=== PATIENT | female | born 1940 | race Caucasian/White ===

== ENCOUNTER 2016-10-23 12:04 | Observation (INO) | payer OTHER ==
--- NOTE | 2016-10-23 12:13 | PDOC ---
History of Present Illness <Sj Frost - Last Filed: 10/23/16 14:23> - General History Source: Patient Exam Limitations: No Limitations - History of Present Illness Initial Comments: 10/23/16 12:35 The patient is a 76 year old female, with a significant past medical history of gastritis, who presents to the emergency department with generalized weakness, decreased appetite, nausea and vomiting. Patient notes that she has been feeling very dehydrated over the past couple of days, She notes that she spent 3 days in the hospital with her waiting for him to be admitted and has been feeling very dehydrated and stressed. She notes that she had a good bowel movement yesterday denies diarrhea or constipation. She denies chest pain, shortness of breath, headache and dizziness. She denies fever, chills, diarrhea and constipation. She denies dysuria, frequency, urgency and hematuria. PCP: Dr. Matt Lynn <Yuli Elliott - Last Filed: 10/23/16 14:25> - General Chief Complaint: Weakness Stated Complaint: NAUSIA/FEVERISH Past History - Past Medical History Anemia: No Asthma: No Cancer: No Cardiac Disorders: No CVA: No COPD: No CHF: No Dementia: No Diabetes: No GI Disorders: Yes (acid reflux) Disorders: No HTN: No Hypercholesterolemia: No Liver Disease: No Seizures: No Thyroid Disease: No - Surgical History Appendectomy: Yes - Psycho/Social/Smoking Cessation Hx Smoking History: Never smoked Have you smoked in the past 12 months: No <Sj Frost - Last Filed: 10/23/16 14:23> <Yuli Elliott - Last Filed: 10/23/16 14:25> - Past Medical History Allergies/Adverse Reactions: Allergies Allergy/AdvReac Type Severity Reaction Status Date / Time No Known Allergies Allergy Verified 10/23/16 12:42 Home Medications: Ambulatory Orders Esomeprazole Magnesium [Nexium] 5 mg PO DAILY 10/23/16 Review of Systems - Review of Systems Able to Perform ROS?: Yes Comments:: 10/23/16 12:36 CONSTITUTIONAL: Present: generalized weakness, loss of appetite Absent: fever, chills, diaphoresis, malaise HEENT: Absent: rhinorrhea, nasal congestion, throat pain, throat swelling, difficulty swallowing, mouth swelling, ear pain, eye pain, visual Changes CARDIOVASCULAR: Absent: chest pain, syncope, palpitations, irregular heart rate, lightheadedness , peripheral edema RESPIRATORY: Absent: cough, shortness of breath, dyspnea with exertion, orthopnea, wheezing, stridor, hemoptysis GASTROINTESTINAL: Present: nausea, vomiting Absent: abdominal pain, abdominal distension, diarrhea, constipation, melena, hematochezia GENITOURINARY: Absent: dysuria, frequency, urgency, hesitancy, hematuria, flank pain, genital pain MUSCULOSKELETAL: Absent: myalgia, arthralgia, joint swelling SKIN: Absent: rash, itching, pallor HEMATOLOGIC/IMMUNOLOGIC: Absent: easy bleeding, easy bruising, lymphadenopathy, frequent infections ENDOCRINE: Absent: unexplained weight gain, unexplained weight loss, heat intolerance, cold intolerance NEUROLOGIC: Absent: headache, focal weakness or paresthesias, dizziness, unsteady gait, seizure, mental status changes, bladder or bowel incontinence PSYCHIATRIC: Absent: anxiety, depression, suicidal or homicidal ideation, hallucinations. <Yuli Elliott - Last Filed: 10/23/16 14:25> *Physical Exam - Physical Exam Comments: 10/23/16 12:37 GENERAL: Well developed, well nourished. Awake and alert. In no acute distress. HEENT: +Dry mucous membranes. Normocephalic, atraumatic. PERRLA, EOMI. No conjunctival pallor. Sclera are non-icteric. Oropharynx is clear. NECK: Supple. Full ROM. No JVD. Carotid pulses 2+ and symmetric, without bruits. No thyromegaly. No lymphadenopathy. CARDIOVASCULAR: Regular rate and rhythm. No murmurs, rubs, or gallops. Distal pulses are 2+ and symmetric. PULMONARY: No evidence of respiratory distress. Lungs clear to auscultation bilaterally. No wheezing, rales or rhonchi. ABDOMINAL: Soft. Non-tender. Non-distended. No rebound or guarding. No organomegaly. Normoactive bowel sounds. MUSCULOSKELETAL Normal range of motion at all joints. No bony deformities or tenderness. No CVA tenderness. EXTREMITIES: No cyanosis. No clubbing. No edema. No calf tenderness. SKIN: Warm and dry. Normal capillary refill. No rashes. No jaundice. NEUROLOGICAL: Alert, awake, appropriate. Cranial nerves 2-12 intact. No deficits to light touch and temperature in face, upper extremities and lower extremities. No motor deficits in the in face, upper extremities and lower extremities. Normoreflexic in the upper and lower extremities. Normal speech. Toes are downgoing bilaterally. PSYCHIATRIC: Cooperative. Good eye contact. Appropriate mood and affect. <Yuli Elliott - Last Filed: 10/23/16 14:25> Heart Score/ECG Review #1 10/23/16 12:[address] Frost. Impresion: Sinus bradycardia ST & T wave abnormality, consider anterolateral ischemia Vent rate: 56 bpm QRS 88 ms <Yuli Elliott - Last Filed: 10/23/16 14:25> ED Treatment Course - LABORATORY CBC & Chemistry Diagram: 10/23/16 12:30 10/23/16 12:04 <Sj Frost - Last Filed: 10/23/16 14:23> - LABORATORY CBC & Chemistry Diagram: 10/23/16 12:30 10/23/16 12:04 <Yuli Elliott - Last Filed: 10/23/16 14:25> Medical Decision Making - Medical Decision Making 10/23/16 14:19 ekg shows anterolateral ischemia (a change from the prior ekg). Seen by cardiology, to be admitted. Dr. Prado to admit. <Sj Frost - Last Filed: 10/23/16 14:23> - Medical Decision Making 10/23/16 12:32 A call was placed to Dr. Matt Lynn at his service. Awaiting a call back. 10/23/16 13:[address] Lynn. 10/23/16 13:05 A call was placed to Dr. Helton. Awaiting a call back. 10/23/16 13:[address] Helton. <Yuli Elliott - Last Filed: 10/23/16 14:25> *DC/Admit/Observation/Transfer - Discharge Dispostion Admit: Yes <Sj Frost - Last Filed: 10/23/16 14:23> - Attestations Scribe Attestion: 10/23/16 12:40 Documentation prepared by Yuli Koziy, SCRIBE, acting as medical records director for Sj Frost MD. <Yuli Elliott - Last Filed: 10/23/16 14:25> Diagnosis at time of Disposition: Anginal equivalent, UTI (urinary tract infection) - Discharge Dispostion Condition at time of disposition: Guarded - Referrals Referrals: Matt Lynn MD [Primary Care Provider] -
[2016-10-23] MEDS ORDERED: SODIUM CHLORIDE 1,000 ML IV STA (12:27)
[2016-10-23] MEDS ORDERED: ONDANSETRON 4 MG/2 ML VIAL IVPUSH ONE (12:28)
[2016-10-23] MEDS ORDERED: ONDANSETRON 4 MG/2 ML VIAL ONE (12:52)
[2016-10-23 12:56] LABS: BASOPHIL 0.1 % (0-2.0); EOSINOPHIL 0.1 % (0-4.5); MCH 29.3 pg (25.7-33.7); MCHC 34.3 g/dl (32.0-36.0); MEAN CELL VOLUME 85.5 fl (80-96); MEAN PLT VOLUME 9.2 fl (7.5-11.1); NEUTROPHILS 70.6 % (42.8-82.8); PLATELET COUNT 194 K/MM3 (134-434); RDW 13.3 % (11.6-15.6); WHITE BLOOD COUNT 10.5 K/mm3 (4.0-10.0)
[2016-10-23 13:10] LABS: URINE APPEARANCE CLEAR; URINE BILIRUBIN NEGATIVE (NEGATIVE); URINE BLOOD NEGATIVE (NEGATIVE); URINE COLOR STRAW; URINE GLUCOSE (UA) NEGATIVE (NEGATIVE); URINE KETONE NEGATIVE (NEGATIVE); URINE NITRITE NEGATIVE (NEGATIVE); URINE PROTEIN NEGATIVE (NEGATIVE); URINE UROBILINOGEN NEGATIVE E.U./dl (0.2-1.0)
[2016-10-23 13:12] LABS: URINE LEUK ESTERASE 3+ (NEGATIVE)
[2016-10-23 13:13] LABS: URINE BACTERIA FEW /hpf (NONE SEEN); URINE WBC 19 /hpf (3-5)
[2016-10-23 13:29] LABS: ALBUMIN 4.1 g/dl (3.4-5.0); ANION GAP 13 (8-16); BILIRUBIN,TOTAL 0.8 mg/dL (0.2-1.0); CO2 22 mmol/L (21-32); CREATININE 0.9 mg/dL (0.55-1.02); GLUCOSE,RANDOM 95 mg/dL (74-106); SGOT/AST 27 U/L (15-37); SGPT/ALT 24 U/L (12-78); TOT PROT 7.7 g/dl (6.4-8.2)
[2016-10-23 13:32] LABS: ALK PHOS 80 U/L (45-117); TROPONIN I < 0.02 ng/ml (0.00-0.05)
[2016-10-23] MEDS ORDERED: CIPROFLOXACIN 250 MG TABLET (RESTRICTED TO ID) PO ONE (13:48)
--- NOTE | 2016-10-23 14:07 | CON.CARD ---
Consult Consult Specialty:: Cardiology Referred by:: ER Reason for Consultation:: Abnormal EKG - History of Present Illness Chief Complaint: Lightheadedness, fatigue History of Present Illness: 76 year old woman with only h/o GERD, recently evaluated by pmd and framing manager in office for exertional fatigue and mild JAFFE presented to ER today with c/o lightheadedness and fatigue that started this am. Pt. noted to have a markedly abnormal ekg with concern for anterolateral ischemia. Pt. seen and examined in the ER in nad. she states that she is feeling much better since coming here. she denies any further lightheadedness. she denies having had any chest pain. she does have mild jaffe for sometime but no sob at rest. no pnd, orthopnea, or LE edema. no palpitations. no syncope or near syncope. Of note she had an exercise treadmill stress test in the office 08/2016 that showed no ischemia and an echo that showed a normal structural heart with carotid doppler that showed no stenosis. Also, her is very sick at home which is contributing to her chronic fatigue. - History Source History Provided By: Patient, Medical Record Limitations to Obtaining History: No Limitations - Past Medical History Gastrointestinal: Yes: GERD - Alcohol/Substance Use Hx Alcohol Use: No - Smoking History Smoking history: Never smoked Have you smoked in the past 12 months: No - Social History Usual Living Arrangement: With Spouse ADL: Independent History of Recent Travel: No Home Medications - Allergies Allergies/Adverse Reactions: Allergies Allergy/AdvReac Type Severity Reaction Status Date / Time No Known Allergies Allergy Verified 10/23/16 12:42 - Home Medications Home Medications: Ambulatory Orders Esomeprazole Magnesium [Nexium] 5 mg PO DAILY 10/23/16 Family Disease History - Family Disease History Family History: Denies Review of Systems - Review of Systems Constitutional: reports: Lethargy, Malaise, Weakness. denies: No Symptoms, Chills, Diaphoresis, Fever, Loss of Appetite, Night Sweats, Unintentional Wgt. Loss, Other Eyes: denies: No Symptoms, Blind Spots, Blurred Vision, Double Vision, Eye Pain , Floaters, Photophobia, Recent Change in Vision, Other HENT: denies: No Symptoms, Difficult Swallowing, Ear Discharge, Ear Pain, Epistaxis, Gingival Bleeding, Hearing Loss, Mouth Swelling, Nasal Congestion, Ocular Prosthesis, Throat Pain, Toothache, Ringing in Ears, Other Neck: denies: No Symptoms, Decreased ROM, Lumps, Pain on Movement, Stiffness, Swollen Glands, Tenderness, Other Cardiovascular: denies: No Symptoms, Chest Pain, Edema, Palpitations, Shortness of Breath, Other Respiratory: denies: No Symptoms, Cough, Exercise Intolerance, Hemoptysis, Orthopnea, PND, Snoring, SOB, SOB on Exertion, Wheezing, Other Gastrointestinal: denies: No Symptoms, Abdominal Pain, Bloating, Constipation, Diarrhea, Dysphagia, Indigestion, Melena, Nausea, Rectal Bleeding, Vomiting, Vomiting Blood, Other Genitourinary: denies: No Symptoms, Burning, Discharge, Dysuria, Flank Pain, Frequency, Hematuria, Incontinence, Lesions, Menses, Pain, Testicular Mass, Testicular Pain, Testicular Swelling, Urgency, Vaginal Bleeding, Other Breasts: denies: No Symptoms Reported, See HPI, Breast Implants, Discharge from Nipple, Lumps, Pain, Skin Changes, Other Musculoskeletal: denies: No Symptoms, Back Pain, Crepitus, Decreased ROM, Extremity Pain, Joint Pain, Joint Swelling, Muscle Pain, Muscle Cramps, Muscle Weakness, Other Integumentary: denies: No Symptoms, Blister, Bruising, Change in Color, Eczema, Erythema, Incision, Lesions, Lump, Pallor, Pruritis, Rash, Wound, Other Neurological: reports: Dizziness. denies: No Symptoms, Change in LOC, Change in Speech, Confusion, Headache, Incoordination, Numbness, Parasthesia, Pre- Existing Deficit, Seizure, Syncope, Tremors, Unsteady Gait, Weakness, Other Endocrine: denies: No Symptoms, Excessive Sweating, Flushing, Increased Hunger, Increased Thirst, Intolerance to Cold, Intolerance to Heat, Unexplained Weight Gain, Unexplained Weight Loss, Other Hematology/Lymphatic: denies: No Symptoms, Easily Bruised, Excessive Bleeding, Swollen Glands, Other Psychiatric: denies: No Symptoms, Altered Sleep Pattern, Anxiety, Depression, Hallucinations, Panic, Paranoia, Suicidal, Other - Risk Factors Known Risk Factors: Yes: Age Vital Signs: Vital Signs Temperature 98.6 F 10/23/16 12:26 Pulse Rate 61 10/23/16 12:26 Respiratory Rate 16 10/23/16 12:26 Blood Pressure 156/84 10/23/16 12:26 O2 Sat by Pulse Oximetry (%) 100 10/23/16 12:26 Constitutional: Yes: Well Nourished, No Distress, Calm Eyes: Yes: WNL, Conjunctiva Clear, EOM Intact HENT: Yes: WNL, Atraumatic, Normocephalic Neck: Yes: WNL, Supple, Trachea Midline Respiratory: Yes: WNL, Regular, CTA Bilaterally. No: Rales, Rhonchi, Wheezes Gastrointestinal: Yes: WNL, Normal Bowel Sounds, Soft. No: Distention, Tenderness Renal/: Yes: WNL Cardiovascular: Yes: WNL, Regular Rate and Rhythm. No: Bradycardia, Tachycardia , Pulse Irregular, Gallop, Rub, Varicosities JVD: No Carotid Bruit: No PMI: Non-Displaced Heart Sounds: Yes: S1, S2. No: Split S2, S3, S4, Clicks, Gallop, Rub, Bruit Murmur: No: Systolic Murmur, Diastolic Murmur Musculoskeletal: Yes: WNL Extremities: Yes: WNL Edema: No Peripheral Pulses WNL: Yes Peripheral Pulses: 2+ Left Doralis Pedis, 2+ Right Dorsalis Pedis Integumentary: Yes: WNL Neurological: Yes: WNL, Alert, Oriented, Cran Nerves II-XII Intact ...Motor Strength: WNL Psychiatric: Yes: WNL, Alert, Oriented - Other Data Labs, Other Data: CBC, BMP 10/23/16 12:30 10/23/16 12:04 Troponin, BNP 10/23/16 12:04 Troponin I < 0.02 Troponin, BNP 10/23/16 12:04 Troponin I < 0.02 ekg-sinus bradycardia 56bpm, T wave inversions V2-V6, possible anterolateral ischemia Echo: Report Reviewed Imaging - Results Chest X-ray: Report Reviewed, Image Reviewed EKG: Report Reviewed, Image Reviewed Other: Report Reviewed, Image Reviewed Assessment/Plan 76 year old woman with only h/o GERD, recently evaluated by pmd and framing manager in office for exertional fatigue and mild JAFFE presented to ER today with c/o lightheadedness and fatigue that started this am. Pt. noted to have a markedly abnormal ekg with concern for anterolateral ischemia. Pt. seen and examined in the ER in nad. she states that she is feeling much better since coming here. she denies any further lightheadedness. she denies having had any chest pain. she does have mild jaffe for sometime but no sob at rest. no pnd, orthopnea, or LE edema. no palpitations. no syncope or near syncope. Of note she had an exercise treadmill stress test in the office 08/2016 that showed no ischemia and an echo that showed a normal structural heart with carotid doppler that showed no stenosis. Also, her is very sick at home which is contributing to her chronic fatigue. Abnormal EKG -c/w possible anterolateral ischemia -no chest pain -cardiac enzymes wnl x 1 -admit to tele -serial ekgs and cardiac enzymes -can give ASA 325mg x 1 then 81mg daily -can hold off on full AC for now unless cardiac enzymes elevated -no bblocker given sinus bradycardia -check fasting lipids -plan for now for echo and nuclear stress test tuesday Lightheadedness-unclear etiology, likely related to fatigue from taking care of her sick -monitor on tele for arrhythmia -ischemic work up as above -recent carotid doppler showed no stenosis -symptoms have resolved
[2016-10-23] MEDS ORDERED: ONDANSETRON 4 MG/2 ML VIAL IVPB PRN (14:46)
[2016-10-23] MEDS ORDERED: ACETAMINOPHEN 325 MG TABLET (FP) PO PRN (14:46)
--- NOTE | 2016-10-23 14:46 | HP ---
[id number] woman who comes to the ER today complaining of fatigue and lightheadedness. She denies fever, chills, cough, chest pain, palpitations, abdominal pain, nausea, vomiting, diarrhea, melena, rectal bleeding, dysuria, hematuria. He has occasional shortness of breath with exertion. She has been under a lot of stress because her has been sick. She says she had a normal stress test and a normal echo a few months ago. PAST MEDICAL HISTORY GERD PAST SURGICAL HISTORY Appendectomy Allergies No Known Allergies Allergy (Verified 10/23/16 12:42) HOME MEDICATIONS 3 Medication Instructions Recorded Esomeprazole Magnesium [Nexium] 5 mg PO DAILY 10/23/16 Social History: Smoking: Never smoked Alcohol: Denies Drugs: Denies Recent Travel: No Family History: Non-contributory REVIEW OF SYSTEMS CONSTITUTIONAL: Present: generalized weakness, malaise. Absent: fever, chills, diaphoresis, loss of appetite, weight change HEENT: Absent: rhinorrhea, nasal congestion, throat pain, throat swelling, difficulty swallowing, mouth swelling, ear pain, eye pain, visual changes CARDIOVASCULAR: Present: lightheadedness. Absent: chest pain, syncope, palpitations, peripheral edema RESPIRATORY: Present: dyspnea on exertion. Absent: cough, orthopnea, wheezing, stridor, hemoptysis GASTROINTESTINAL: Absent: abdominal pain, abdominal distension, nausea, vomiting , diarrhea, constipation, melena, hematochezia GENITOURINARY: Absent: dysuria, frequency, urgency, hesitancy, hematuria, flank pain MUSCULOSKELETAL: Absent: myalgia, arthralgia, joint swelling, back pain, neck pain SKIN: Absent: rash, itching, pallor HEMATOLOGIC/IMMUNOLOGIC: Absent: easy bleeding, easy bruising, lymphadenopathy, frequent infections ENDOCRINE: Absent: unexplained weight gain, unexplained weight loss, heat intolerance, cold intolerance NEUROLOGIC: Present: dizziness. Absent: headache, focal weakness, paresthesias , unsteady gait, seizure, mental status changes, bladder or bowel incontinence PSYCHIATRIC: Absent: anxiety, depression, suicidal or homicidal ideation, hallucinations. PHYSICAL EXAMINATION Vital Signs Period Temp Pulse Resp BP Sys/Gonzalez Pulse Ox Last 24 Hr 98.6 F 61 16 156/84 100 GENERAL: Awake, alert, and fully oriented, in no acute distress. HEAD: Normal with no signs of trauma. EYES: Pupils equal, round and reactive to light, extraocular movements intact, sclerae anicteric, conjunctivae clear. EARS, NOSE, THROAT: Ears normal, nares patent, oropharynx clear without exudates. Moist mucous membranes. NECK: Normal range of motion, supple without lymphadenopathy, JVD, or masses. LUNGS: Breath sounds equal, clear to auscultation bilaterally. No wheezes, and no crackles. No accessory muscle use. HEART: Regular rate and rhythm, normal S1 and S2 without murmur, rub or gallop. ABDOMEN: Soft, nontender, not distended, normoactive bowel sounds, no guarding, no rebound, no masses. No hepatomegaly or splenomegaly. MUSCULOSKELETAL: Normal range of motion at all joints. No bony deformities or tenderness. No CVA tenderness. UPPER EXTREMITIES: 2+ pulses, warm, well-perfused. No cyanosis. No clubbing. Cap refill <2 seconds. No peripheral edema. LOWER EXTREMITIES: 2+ pulses, warm, well-perfused. No calf tenderness. No peripheral edema. NEUROLOGICAL: Cranial nerves II-XII intact. Normal speech. Gait not observed. PSYCHIATRIC: Cooperative. Good eye contact. Appropriate mood and affect. SKIN: Warm, dry, normal turgor, no rashes or lesions noted. Laboratory Tests 10/23/16 10/23/16 10/23/16 12:04 12:04 12:30 WBC 10.5 H RBC 5.07 Hgb 14.9 Hct 43.3 MCV 85.5 MCHC 34.3 RDW 13.3 Plt Count 194 MPV 9.2 Neutrophils % 70.6 Lymphocytes % 24.5 Monocytes % 4.7 Eosinophils % 0.1 Basophils % 0.1 Sodium 139 Potassium 4.2 Chloride 104 Carbon Dioxide 22 D Anion Gap 13 BUN 9 D Creatinine 0.9 Creat Clearance w eGFR > 60 Random Glucose 95 Calcium 9.0 Magnesium 2.0 Total Bilirubin 0.8 D AST 27 ALT 24 Alkaline Phosphatase 80 Creatine Kinase 189 CK-MB (CK-2) 1.280 Troponin I < 0.02 Total Protein 7.7 Albumin 4.1 Urine Color Straw Urine Appearance Clear Urine pH 8.0 Ur Specific [place] 1.004 Urine Protein Negative Urine Glucose (UA) Negative Urine Ketones Negative Urine Blood Negative Urine Nitrite Negative Urine Bilirubin Negative Urine Urobilinogen Negative Ur Leukocyte Esterase 3+ H Urine RBC None Urine WBC 19 Ur Epithelial Cells Rare Urine Bacteria Few EKG: Sinus bradycardia, rate 56. Inverted Ts in V2-V6. Chest x-ray: Right-sided clips. Cardiomegaly. No acute process. EKG: Sinus rhythm, rate 56. ASSESSMENT/PLAN: This is a 76-year-old woman who presented to the ER with fatigue and lightheadedness. She was found to have WBC 10.5. Urinalysis was positive for 3+ leukocyte esterase, 19 WBC, few bacteria. She is being placed in observation now for further evaluation and treatment of an emergent condition. 1. Fatigue, possibly secondary to UTI - Start Rocephin - Follow up urine culture - IV fluid 2. Abnormal EKG - Monitor on telemetry - Start aspirin - Serial troponins - Echocardiogram - Cardiology consult appreciated - Plan for nuclear stress 10/25 if enzymes negative 3. GERD - Continue Nexium Visit type - Emergency Visit Emergency Visit: Yes ED Registration Date: 10/23/16 Care time: The patient presented to the Emergency Department on the above date and was hospitalized for further evaluation of their emergent condition. - New Patient This patient is new to me today: Yes Date on this admission: 10/23/16 - Critical Care Critical Care patient: No
[2016-10-23] MEDS: CEFTRIAXONE 50 ML IVPB SCH (20:10)
[2016-10-23 21:14] VITALS: BMI 25.9
[2016-10-24] MEDS ORDERED: ESOMEPRAZOLE MAGNESIUM PO SCH (10:00)
[2016-10-24] MEDS: ASPIRIN 81 MG CHEWABLE TABLETS PO SCH (10:31)
[2016-10-24] MEDS: CEFTRIAXONE 50 ML IVPB SCH (10:31)
--- NOTE | 2016-10-24 11:17 | PN ---
Progress Note, Physician History of Present Illness: seen and examined today in [facility]. no overnight events. no new complaints. feeling better today. - Current Medication List Current Medications: Active Medications Acetaminophen (Tylenol -) 650 mg PO Q4H PRN PRN Reason: FEVER OR PAIN Aspirin (Asa -) 81 mg PO DAILY [facility] Last Admin: 10/24/16 10:31 Dose: 81 mg Ceftriaxone Sodium (Rocephin 1gm Ivpb (Pre-Docked)) 50 mls @ 100 mls/hr IVPB DAILY [facility] Last Admin: 10/24/16 10:31 Dose: 100 mls/hr Non-Formulary Medication (Esomeprazole Magnesium [Nexium]) 5 mg PO DAILY [facility] Ondansetron HCl (Zofran Injection) 4 mg IVPB Q4H PRN PRN Reason: NAUSEA - Objective Vital Signs: Vital Signs Temperature 98.0 F 10/24/16 04:00 Pulse Rate 54 L 10/24/16 10:34 Respiratory Rate 20 10/24/16 10:34 Blood Pressure 161/80 10/24/16 10:34 O2 Sat by Pulse Oximetry (%) 100 10/24/16 00:51 Constitutional: Yes: Well Nourished, No Distress, Calm Eyes: Yes: WNL, Conjunctiva Clear, EOM Intact, PERRL HENT: Yes: WNL, Atraumatic, Normocephalic Neck: Yes: WNL, Supple, Trachea Midline Cardiovascular: Yes: WNL, Regular Rate and Rhythm, S1, S2. No: Bradycardia, Tachycardia, Pulse Irregular, Bruit, JVD, Gallop, Murmur, Rub, S3, S4, Varicosities Respiratory: Yes: WNL, Regular, CTA Bilaterally. No: Rales, Rhonchi, Wheezes Gastrointestinal: Yes: WNL, Normal Bowel Sounds, Soft. No: Distention, Tenderness Musculoskeletal: Yes: WNL Extremities: Yes: WNL Edema: No Peripheral Pulses WNL: Yes Peripheral Pulses: Left Doralis Pedis: 2+, Right Dorsalis Pedis: 2+ Integumentary: Yes: WNL Neurological: Yes: WNL, Alert, Oriented, Cran Nerves II-XII Intact ...Motor Strength: WNL Psychiatric: Yes: WNL, Alert, Oriented - ....Imaging Chest X-ray: Report Reviewed, Image Reviewed EKG: Report Reviewed, Image Reviewed Other: Report Reviewed, Image Reviewed (tele-nsr, artifact, no sig arrhythmias recorded) Assessment/Plan 76 year old woman with only h/o GERD, recently evaluated by pmd and operations lieutenant in office for exertional fatigue and mild JAFFE presented to ER today with c/o lightheadedness and fatigue that started this am. Pt. noted to have a markedly abnormal ekg with concern for anterolateral ischemia. Pt. seen and examined in the ER in nad. she states that she is feeling much better since coming here. she denies any further lightheadedness. she denies having had any chest pain. she does have mild jaffe for sometime but no sob at rest. no pnd, orthopnea, or LE edema. no palpitations. no syncope or near syncope. Of note she had an exercise treadmill stress test in the office 08/2016 that showed no ischemia and an echo that showed a normal structural heart with carotid doppler that showed no stenosis. Also, her is very sick at home which is contributing to her chronic fatigue. Abnormal EKG -c/w possible anterolateral ischemia -no chest pain -cardiac enzymes wnl x 3 -no sig arrhythmias recorded on tele -cont ASA 81mg daily -no bblocker given sinus bradycardia -check fasting lipids, can be done as outpatient -plan for now for echo and nuclear stress test tuesday Lightheadedness-unclear etiology, likely related to fatigue from taking care of her sick -symptoms resolved -no arrhythmia on tele -ischemic work up as above -recent carotid doppler showed no stenosis
--- NOTE | 2016-10-24 21:42 | PN ---
Progress Note, Physician History of Present Illness: No new change - Current Medication List Current Medications: Active Medications Acetaminophen (Tylenol -) 650 mg PO Q4H PRN PRN Reason: FEVER OR PAIN Aspirin (Asa -) 81 mg PO DAILY [facility] Last Admin: 10/24/16 10:31 Dose: 81 mg Ceftriaxone Sodium (Rocephin 1gm Ivpb (Pre-Docked)) 50 mls @ 100 mls/hr IVPB DAILY [facility] Last Admin: 10/24/16 10:31 Dose: 100 mls/hr Non-Formulary Medication (Esomeprazole Magnesium [Nexium]) 5 mg PO DAILY [facility] Ondansetron HCl (Zofran Injection) 4 mg IVPB Q4H PRN PRN Reason: NAUSEA - Objective Vital Signs: Vital Signs Temperature 97.2 F L 10/24/16 14:40 Pulse Rate 70 10/24/16 14:40 Respiratory Rate 16 10/24/16 21:08 Blood Pressure 134/89 10/24/16 14:40 O2 Sat by Pulse Oximetry (%) 94 L 10/24/16 21:08 Neck: Yes: Supple Cardiovascular: Yes: WNL, Regular Rate and Rhythm Respiratory: Yes: WNL, Regular, CTA Bilaterally Gastrointestinal: Yes: WNL, Normal Bowel Sounds, Soft Problem List - Problems (1) Anginal equivalent Assessment/Plan: No further chest pain Serial cpk/troponin are negative Stress test in am Code(s): I20.8 - OTHER FORMS OF ANGINA PECTORIS (2) UTI (urinary tract infection) Assessment/Plan: Cont IV ceftriaxone await urine culture Check wbc in am Code(s): N39.0 - URINARY TRACT INFECTION, SITE NOT SPECIFIED
[2016-10-25 07:13] LABS: BASOPHIL 0.2 % (0-2.0); EOSINOPHIL 1.2 % (0-4.5); MCH 29.6 pg (25.7-33.7); MCHC 34.5 g/dl (32.0-36.0); MEAN CELL VOLUME 85.9 fl (80-96); MEAN PLT VOLUME 9.4 fl (7.5-11.1); NEUTROPHILS 44.7 % (42.8-82.8); PLATELET COUNT 198 K/MM3 (134-434); RDW 13.6 % (11.6-15.6); WHITE BLOOD COUNT 8.6 K/mm3 (4.0-10.0)
[2016-10-25 07:34] LABS: ALBUMIN 3.8 g/dl (3.4-5.0); ANION GAP 8 (8-16); CALCIUM 8.5 mg/dL (8.5-10.1); CO2 27 mmol/L (21-32); CREATININE 0.8 mg/dL (0.55-1.02); GLUCOSE,RANDOM 90 mg/dL (74-106); SGOT/AST 24 U/L (15-37); SGPT/ALT 24 U/L (12-78)
[2016-10-25 07:35] LABS: ALK PHOS 74 U/L (45-117); BILIRUBIN,TOTAL 0.8 mg/dL (0.2-1.0)
[2016-10-25] MEDS: CEFTRIAXONE 50 ML IVPB SCH (11:37)
[2016-10-25] MEDS: ASPIRIN 81 MG CHEWABLE TABLETS PO SCH (11:37)
--- NOTE | 2016-10-25 13:30 | PN ---
Progress Note, Physician History of Present Illness: seen and examined today in [facility]. no overnight events. no new complaints. - Current Medication List Current Medications: Active Medications Acetaminophen (Tylenol -) 650 mg PO Q4H PRN PRN Reason: FEVER OR PAIN Aspirin (Asa -) 81 mg PO DAILY [facility] Last Admin: 10/25/16 11:37 Dose: 81 mg Ceftriaxone Sodium (Rocephin 1gm Ivpb (Pre-Docked)) 50 mls @ 100 mls/hr IVPB DAILY [facility] Last Admin: 10/25/16 11:37 Dose: 100 mls/hr Non-Formulary Medication (Esomeprazole Magnesium [Nexium]) 5 mg PO DAILY [facility] Ondansetron HCl (Zofran Injection) 4 mg IVPB Q4H PRN PRN Reason: NAUSEA - Objective Vital Signs: Vital Signs Temperature 98.6 F 10/25/16 10:00 Pulse Rate 56 L 10/25/16 10:00 Respiratory Rate 16 10/25/16 10:00 Blood Pressure 140/83 10/25/16 10:00 O2 Sat by Pulse Oximetry (%) 94 L 10/24/16 21:08 Constitutional: Yes: Well Nourished, No Distress, Calm Eyes: Yes: WNL, Conjunctiva Clear, EOM Intact, PERRL HENT: Yes: WNL, Atraumatic, Normocephalic Neck: Yes: WNL, Supple, Trachea Midline Cardiovascular: Yes: WNL, Regular Rate and Rhythm, S1, S2. No: Bradycardia, Tachycardia, Pulse Irregular, Bruit, JVD, Gallop, Murmur, Rub, S3, S4, Varicosities Respiratory: Yes: WNL, Regular, CTA Bilaterally. No: Rales, Rhonchi, Wheezes Gastrointestinal: Yes: WNL, Normal Bowel Sounds, Soft. No: Distention, Tenderness Musculoskeletal: Yes: WNL Extremities: Yes: WNL Edema: No Peripheral Pulses WNL: Yes Peripheral Pulses: Left Doralis Pedis: 2+, Right Dorsalis Pedis: 2+ Integumentary: Yes: WNL Neurological: Yes: WNL, Alert, Oriented, Cran Nerves II-XII Intact ...Motor Strength: WNL Psychiatric: Yes: WNL, Alert, Oriented Labs: CBC, BMP 10/25/16 05:30 10/25/16 05:30 - ....Imaging Chest X-ray: Report Reviewed, Image Reviewed EKG: Report Reviewed, Image Reviewed Other: Report Reviewed, Image Reviewed (tele-nsr, no arrhythmias recorded) Assessment/Plan 76 year old woman with only h/o GERD, recently evaluated by pmd and vp care management in office for exertional fatigue and mild JAFFE presented to ER today with c/o lightheadedness and fatigue that started this am. Pt. noted to have a markedly abnormal ekg with concern for anterolateral ischemia. Pt. seen and examined in the ER in [place]. she states that she is feeling much better since coming here. she denies any further lightheadedness. she denies having had any chest pain. she does have mild jaffe for sometime but no sob at rest. no pnd, orthopnea, or LE edema. no palpitations. no syncope or near syncope. Of note she had an exercise treadmill stress test in the office 08/2016 that showed no ischemia and an echo that showed a normal structural heart with carotid doppler that showed no stenosis. Also, her is very sick at home which is contributing to her chronic fatigue. Abnormal EKG-c/w possible anterolateral ischemia -no chest pain -cardiac enzymes wnl -no sig arrhythmias recorded on tele -cont ASA 81mg daily -no bblocker given sinus bradycardia -check fasting lipids, can be done as outpatient -f/up echo and nuclear stress test today. if no sig structural heart disease on echo and no ischemia on stress test pt would be acceptable for discharge from a cardiac standpoint. Lightheadedness-unclear etiology, likely related to fatigue from taking care of her sick -symptoms resolved -no arrhythmia on tele -ischemic work up as above -recent carotid doppler showed no stenosis
--- NOTE | 2016-10-25 16:20 | EKG ---
Test Reason : Blood Pressure : / mmHG Vent. Rate : 056 BPM Atrial Rate : 056 BPM P-R Int : 120 ms QRS Dur : 088 ms QT Int : 460 ms P-R-T Axes : -05 003 -01 degrees QTc Int : 443 ms SINUS BRADYCARDIA ABNORMAL ECG NO PREVIOUS ECGS AVAILABLE Confirmed by JAIME CONNORS MD ([id number]) on 10/25/2016 4:20:10 PM Referred By: Confirmed By:JAIME CONNORS MD
--- NOTE | 2016-10-25 16:29 | PN ---
Progress Note (short form) - Note Progress Note: Nuclear stress test reviewed. In light of abnormal ekg with possible anterolateral ischemia and stress test with mild apical ischemia will transfer for cardiac cath for definitive assessment of coronary anatomy and revascularization as needed.
--- NOTE | 2016-10-25 20:29 | PN ---
Progress Note, Physician History of Present Illness: No new complaint - Current Medication List Current Medications: Active Medications Acetaminophen (Tylenol -) 650 mg PO Q4H PRN PRN Reason: FEVER OR PAIN Aspirin (Asa -) 81 mg PO DAILY [facility] Last Admin: 10/25/16 11:37 Dose: 81 mg Ceftriaxone Sodium (Rocephin 1gm Ivpb (Pre-Docked)) 50 mls @ 100 mls/hr IVPB DAILY [facility] Last Admin: 10/25/16 11:37 Dose: 100 mls/hr Non-Formulary Medication (Esomeprazole Magnesium [Nexium]) 5 mg PO DAILY [facility] Ondansetron HCl (Zofran Injection) 4 mg IVPB Q4H PRN PRN Reason: NAUSEA - Objective Vital Signs: Vital Signs Temperature 97.7 F 10/25/16 18:08 Pulse Rate 67 10/25/16 18:08 Respiratory Rate 20 10/25/16 18:08 Blood Pressure 114/70 10/25/16 18:08 O2 Sat by Pulse Oximetry (%) 96 10/25/16 08:30 Neck: Yes: Supple Cardiovascular: Yes: WNL, Regular Rate and Rhythm Respiratory: Yes: WNL, Regular, CTA Bilaterally Gastrointestinal: Yes: WNL, Normal Bowel Sounds, Soft Labs: CBC, BMP 10/25/16 05:30 10/25/16 05:30 Problem List - Problems (1) Anginal equivalent Assessment/Plan: Abnormal stress test As per cardio pt to be transferred for cardiac cath in am Code(s): I20.8 - OTHER FORMS OF ANGINA PECTORIS (2) UTI (urinary tract infection) Assessment/Plan: Urine culture is negative DC antibxs Code(s): N39.0 - URINARY TRACT INFECTION, SITE NOT SPECIFIED
[2016-10-26 06:01] VITALS: PULSE 65
[2016-10-26] MEDS: ASPIRIN 81 MG CHEWABLE TABLETS PO SCH (09:24)
--- NOTE | 2016-10-26 09:38 | PN ---
Progress Note, Physician Chief Complaint: no complaints Awaits cath - Current Medication List Current Medications: Active Medications Acetaminophen (Tylenol -) 650 mg PO Q4H PRN PRN Reason: FEVER OR PAIN Aspirin (Asa -) 81 mg PO DAILY [facility] Last Admin: 10/26/16 09:24 Dose: 81 mg Non-Formulary Medication (Esomeprazole Magnesium [Nexium]) 5 mg PO DAILY [facility] Ondansetron HCl (Zofran Injection) 4 mg IVPB Q4H PRN PRN Reason: NAUSEA - Objective Vital Signs: Vital Signs Temperature 97.5 F L 10/26/16 06:00 Pulse Rate 65 10/26/16 06:00 Respiratory Rate 18 10/26/16 06:00 Blood Pressure 114/70 10/26/16 06:00 O2 Sat by Pulse Oximetry (%) 100 10/25/16 21:06 Constitutional: Yes: No Distress Eyes: Yes: Conjunctiva Clear Cardiovascular: Yes: Regular Rate and Rhythm Respiratory: Yes: CTA Bilaterally Gastrointestinal: Yes: Soft Edema: No Neurological: Yes: Alert Labs: CBC, BMP 10/25/16 05:30 10/25/16 05:30 - ....Imaging EKG: Image Reviewed Other: Image Reviewed (stress test reviewed) Assessment/Plan Assessment/Plan 76 year old woman with only h/o GERD, recently evaluated by pmd and counter attendant in office for exertional fatigue and mild JAFFE presented to ER today with c/o lightheadedness and fatigue Pt. noted to have a markedly abnormal ekg with concern for anterolateral ischemia. Stress MIBI abnormal with ischemia. Abnormal EKG-with abnormal stress MPI -cont ASA 81mg daily -no bblocker given sinus bradycardia -awaits transfer to [facility] for cath today
[2016-10-26 11:31] VITALS: BP 139/68; TEMP 97.8
== END 2016-10-26 10:38 | disposition short-term general hospital (02) ==
LOC: JER 12:04 → UNDOADMOB 14:31 → INTOOBSV 14:31 → JERBED 14:31 → J8W 19:24 → JERBED 19:24 → J4S 10-24 00:19 → J8W 10-24 00:19
PROVIDERS: ADMIT Internal Medicine; ATTEND Internal Medicine
DX: I20.8 Other forms of angina pectoris (principal); R94.31 Abnormal electrocardiogram [ECG] [EKG]; K21.9 Gastro-esophageal reflux disease without esophagitis; N39.0 Urinary tract infection, site not specified; R42 Dizziness and giddiness; I25.9 Chronic ischemic heart disease, unspecified
CPT/HCPCS: 36415; 71010-TC; 78452-TC; 80053; 81003; 81015; 82550; 82553; 83735; 84443; 84484; 85025; 87086; 93005; 93010; 93017; 99284-25; A9502; G0378

== ENCOUNTER 2019-08-27 12:19 | Day surgery (SDC) | payer OTHER ==
[2019-08-27 12:57] VITALS: BMI 27.7
[2019-08-27 13:45] VITALS: TEMP 98.7
[2019-08-27 14:49] VITALS: BP 130/63; PULSE 76
--- NOTE | 2019-08-29 17:46 | PATH ---
Surgical Pathology Report Patient Name: JAKI VELA [facility]. Rec. #: [id number] /Age/Gender: 1940 (Age: 79) / F Account: [id number] Location: [facility]-ENDOSCOPY Taken: 08/27/2019 Received: 08/28/2019 Reported: 08/29/2019 Physicians: Fermin Catherine M.D. Specimen(s) Received A: MID TRANSVERSE COLON POLYP B: ILEOCECAL VALVE THICKENED FOLD Clinical History Rectal pain, constipation Postoperative diagnosis: Polyp Final Diagnosis A. MID TRANSVERSE COLON, POLYP, POLYPECTOMY: TUBULAR ADENOMA. B. ILEOCECAL VALVE, THICKENED FOLD, BIOPSY: JUNCTIONAL MUCOSA WITH FOCAL ACTIVE ILEITIS AND PROMINENT LYMPHOID AGGREGATE. SEE COMMENT. Comment: Findings are non-specific. Although acute self-limited ilietis is a consideration, among other conditions, the possibility of early inflammatory bowel disease cannot be completely excluded. Suggest clinical/endoscopic correlation. Electronically Signed Celsa Hess M.D. Gross Description A. Received in formalin, labeled "colon polyp mid transverse" is a mayo, irregular portion of soft tissue measuring 0.3 cm. in greatest dimension. The specimen is submitted in toto in one cassette. B. Received in formalin, labeled "biopsy ileocecal valve thickened fold" is a mayo, irregular portion of soft tissue measuring 0.3 cm. in greatest dimension. The specimen is submitted in toto in one cassette. DL/08/28/2019 saudi/08/28/2019
== END 2019-08-27 14:45 | disposition home or self-care (01) ==
LOC: JASU-ENDO 12:19
PROVIDERS: ATTEND Internal Medicine Gastroenterology
PROC: 0DBL8ZX Excision of Transverse Colon, Via Natural or Artificial Opening Endoscopic, Diagnostic (ICD-10-PCS; 2019-08-27)
PROC: 0DBC8ZX Excision of Ileocecal Valve, Via Natural or Artificial Opening Endoscopic, Diagnostic (ICD-10-PCS; principal; 2019-08-27 13:00)
DX: K52.9 Noninfective gastroenteritis and colitis, unspecified (principal); R19.4 Change in bowel habit; D12.3 Benign neoplasm of transverse colon
CPT/HCPCS: 88305-TC